=== PATIENT | male | born 1960 | race African-American/Black ===

== ENCOUNTER 2020-07-18 15:38 | Emergency (ER) | payer MEDICAID ==
[~2020-07-18] VITALS: Ht 172.7 cm; Wt 72.7 kg
[2020-07-18 15:53] VITALS: BP 143/82
== END 2020-07-18 17:13 | disposition home or self-care (01) ==
LOC: EMS 15:38
DX: R21 Rash and other nonspecific skin eruption (principal); F14.90 Cocaine use, unspecified, uncomplicated
CPT/HCPCS: Z7502